=== PATIENT | female | born 1955 | race Caucasian/White ===

== ENCOUNTER 2024-03-21 14:36 | Emergency (ER) | payer OTHER, MEDICARE ==
[~2024-03-21] VITALS: Ht 162.6 cm; Wt 65.3 kg
[2024-03-21 15:03] VITALS: BP_SYST 144; PULSE 68; RESP 16; TEMP 98.3; O2SAT 96
[2024-03-21 17:26] VITALS: BP_SYST 144; PULSE 68; RESP 16; TEMP 98.3; O2SAT 96
[2024-03-21] MEDS ORDERED: IBUP-1969 PO (18:28)
== END 2024-03-21 17:29 | disposition left against medical advice (07) ==
LOC: SED 14:36
DX: S99.921A Unspecified injury of right foot, initial encounter (principal); J90 Pleural effusion, not elsewhere classified; M20.11 Hallux valgus (acquired), right foot; R51.9 Headache, unspecified; M54.2 Cervicalgia; X58.XXXA Exposure to other specified factors, initial encounter; Y93.89 Activity, other specified; Y92.89 Other specified places as the place of occurrence of the external cause; Y99.8 Other external cause status
CPT/HCPCS: 70450-TC; 71045; 72125-TC; 99284

== ENCOUNTER 2024-03-21 17:50 | Emergency (ER) | payer OTHER, MEDICARE ==
[~2024-03-21] VITALS: Ht 162.6 cm; Wt 65.3 kg
[2024-03-21 17:58] VITALS: BP_SYST 144; PULSE 60; RESP 16; TEMP 97.8; O2SAT 100
[2024-03-21] MEDS ORDERED: IBUP-1969 PO (18:28)
[2024-03-21 18:39] VITALS: BP_SYST 144; PULSE 60; RESP 16; TEMP 97.8; O2SAT 100
== END 2024-03-21 18:39 | disposition home or self-care (01) ==
LOC: SED 17:50
DX: S92.351A Displaced fracture of fifth metatarsal bone, right foot, initial encounter for closed fracture (principal); S16.1XXA Strain of muscle, fascia and tendon at neck level, initial encounter; S09.90XA Unspecified injury of head, initial encounter; W10.9XXA Fall (on) (from) unspecified stairs and steps, initial encounter; Y93.89 Activity, other specified; Y92.89 Other specified places as the place of occurrence of the external cause; Y99.8 Other external cause status
CPT/HCPCS: 99283